=== PATIENT | female | born 1995 | race African-American/Black ===

== ENCOUNTER 2017-08-14 12:40 | Emergency (ER) | payer BC ==
[~2017-08-14] VITALS: Ht 154.9 cm; Wt 55.0 kg
[2017-08-14 12:41] VITALS: BP 133/77; PULSE 94; RESP 20; TEMP 99.7; O2SAT 99
--- NOTE | 2017-08-14 16:33 | PD ---
HPI Chief Complaint: Skin Problem Time Seen by Provider: 16:19 Travel History International Travel<30 days: No Contact w/Intl Traveler<30days: No Traveled to known affect area: No History of Present Illness HPI 22yo F with no PMH presents to the ED with c/o redness, swelling and pain in right breast for 3 days. Denies any trauma, fever, chest pain, sob, n/v, abdominal pain, focal weakness or numbness. Pt has no history of breast cancer or family history of breast cancer. Pt has a nipple ring for 1 year. Not breast feeding. PFSH Past Medical History ?: Not LMP: 07/2017 Social History Tobacco Use: No Allergies-Medications (Allergen,Severity, Reaction): Coded Allergies: No Known Allergies (Unverified , 08/14/17) Reported Meds & Prescriptions Reported Meds & Active Scripts Active Tylenol (Acetaminophen) 325 Mg Tab 650 Mg PO Q6H PRN Keflex (Cephalexin) 500 Mg Cap 500 Mg PO Q12H 7 Days Review of Systems Except as stated in HPI: all other systems reviewed are Neg Physical Exam Narrative GENERAL: 22yo F not in distress. SKIN: Focused skin assessment warm/dry. HEAD: Atraumatic. Normocephalic. EYES: Pupils equal and round. No scleral icterus. No injection or drainage. CARDIOVASCULAR: Regular rate and rhythm. No murmur appreciated. RESPIRATORY: No accessory muscle use. Clear to auscultation. Breath sounds equal bilaterally. GASTROINTESTINAL: Abdomen soft, non-tender, nondistended. BREAST: +Erythema and induration medial right breast. +Fluctuance areola 5 o' clock. MUSCULOSKELETAL: No obvious deformities. No clubbing. No cyanosis. No edema. NEUROLOGICAL: Awake and alert. No obvious cranial nerve deficits. Motor grossly within normal limits. Normal speech. PSYCHIATRIC: Appropriate mood and affect; insight and judgment normal. Data Data Last Documented VS Vital Signs Date Time Temp Pulse Resp B/P (MAP) Pulse Ox O2 Delivery O2 Flow Rate FiO2 08/14/17 17:26 08/14/17 12:41 99.7 94 20 99 Room Air Orders Orders Ed Poc Ultrasound (08/14/17 ) Lidocaine 1% Inj (50 Ml) (Xylocaine 1% I (08/14/17 16:45) Ed Discharge Order (08/14/17 17:18) MDM Medical Decision Making Medical Screen Exam Complete: Yes Emergency Medical Condition: Yes Differential Diagnosis Abscess vs. cellulitis Narrative Course 22yo F with right breast redness and swelling for 3 days. Positive fluctuance on exam. Bedside ultrasound confirmed collection of fluid in right breast. I& D performed and copious amounts of purulent discharge drained. Pt instructed to return in 2 days for packing removal and wound check. Procedures Procedure Narrative Emergency department soft-tissue/musculoskeletal ultrasound was performed with patient consent. Linear probe was used in the transverse and sagittal views in the area of interest with evidence of soft-tissue abscess. INCISION AND DRAINAGE OF ABSCESS: The area was prepped and was sterilely draped. A subcutaneous wheal of 1 % Xylocaine 3 mL was used to anesthetize the area properly. A number 11 scalpel was used to make a 0.5 -cm incision across the area of the abscess. The abscess was drained, complex loculations were broken down. Quarter inch iodoform packing was placed in the wound. Sterile dressing applied. Patient advised to have packing removed in two days. Diagnosis Primary Impression: Abscess Patient Instructions: General Instructions Departure Forms: Tests/Procedures Additional Instructions: Please return to the ED in 2 days for packing removal and wound check. Return to the ED earlier if symptoms worsen. Med/Other Pt SpecificInfo: Prescription(s) given Scripts Acetaminophen (Tylenol) 325 Mg Tab 650 MG PO Q6H Y for PAIN SCALE 1 TO 4, #20 TAB 0 Refills Prov: Almita Tejeda DO 08/14/17 Cephalexin (Keflex) 500 Mg Cap 500 MG PO Q12H for Infection for 7 Days, #14 CAP 0 Refills Prov: Almita Tejeda DO 08/14/17 Disposition: 01 DISCHARGE HOME Condition: Stable Almita Tejeda DO Aug 14, 2017 16:33
[2017-08-14] MEDS ORDERED: LIDOCAINE HCL 1% 50 ML VIAL INFIL ONE (16:45)
[2017-08-14] MEDS ORDERED: TYLE325T PO (17:18)
[2017-08-14] MEDS ORDERED: CEPH-460 PO (17:18)
== END 2017-08-14 17:27 | disposition home or self-care (01) ==
LOC: NEPD 12:40
DX: N61.1 Abscess of the breast and nipple (principal)
CPT/HCPCS: 10061

== ENCOUNTER 2017-08-16 22:17 | Emergency (ER) | payer BC ==
[~2017-08-16] VITALS: Ht 154.9 cm; Wt 58.0 kg
[~2017-08-16 22:17] MED LIST: CEPH-460 PO; TYLE325T PO
[2017-08-16 22:19] VITALS: BP 118/59; PULSE 78; RESP 16; TEMP 98; O2SAT 98
[2017-08-17] MEDS ORDERED: oxyCODONE/ACETAMINOPHEN 5 MG/325 MG TAB PO ONE (00:30)
[2017-08-17 00:44] VITALS: BP 158/90; PULSE 83; RESP 20; O2SAT 100
[2017-08-17 01:35] LABS: BASOPHIL # 0.1 TH/MM3 (0-0.2); BASOPHIL % 0.6 % (0.0-2.0); EOSINOPHIL # 0.2 TH/MM3 (0-0.4); EOSINOPHIL % 2.3 % (0.0-4.0); HEMATOCRIT 37.6 % (35.0-46.0); HEMO FLAGS DIFF FINAL; LYMPH % 20.5 % (9.0-44.0); LYMPHOCYTE # 2.1 TH/MM3 (1.0-4.8); MEAN CELL VOLUME 91.8 FL (80.0-100.0); MEAN CORPUSCULAR HEMOGLOBIN 30.6 PG (27.0-34.0); MEAN CORPUSCULAR HGB CONC 33.4 % (32.0-36.0); MONO % 8.5 % (0.0-8.0); NEUT % 68.1 % (16.0-70.0); PLATELET COUNT 245 TH/MM3 (150-450); RED BLOOD COUNT 4.09 MIL/MM3 (4.00-5.30); RED CELL DISTRIBUTION WIDTH 12.1 % (11.6-17.2); WHITE BLOOD COUNT 10.3 TH/MM3 (4.0-11.0)
[2017-08-17 01:42] LABS: BICARBONATE 26.1 MEQ/L (21.0-32.0); POTASSIUM 3.6 MEQ/L (3.5-5.1)
--- NOTE | 2017-08-17 02:05 | RADRPT ---
EXAM DATE/TIME: 08/17/2017 01:29 [facility] COMPARISON: No previous studies available for comparison. INDICATIONS : Right breast abscess. MEDICAL HISTORY : Right breast abscess. SURGICAL HISTORY : Right breast abscess lanced. ENCOUNTER: Initial ACUITY: 3 days PAIN SCORE: 10/10 LOCATION: Right breast. FINDINGS: Target sonogram of the right breast obtained. There is some skin thickening. They have decreased echo genicity measures 4.1 x 1.0 x 2.7 cm. CONCLUSION: Area of decreased echogenicity in the right breast could be minimal residual abscess. Yefri Dozier MD on August 17, 2017 at 2:02 Board Certified Radiologist. This report was verified electronically.
[2017-08-17] MEDS ORDERED: BACT800T5 PO (02:53)
--- NOTE | 2017-08-17 02:53 | PD ---
HPI Chief Complaint: Wound/Suture/Staple Re-Check Time Seen by Provider: 00:07 Travel History International Travel<30 days: No Contact w/Intl Traveler<30days: No Traveled to known affect area: No History of Present Illness HPI Patient is a 22 year old female who comes in complaining of drainage from her right breast. She was here 2 days ago and had her abscess drained. She was discharged with a prescription for Keflex, which she reports taking. She says it has continued to drain, so she returned to have it checked. She denies any fever. She says that she has a burning pain. She has never had this before. PFSH Past Medical History Medical History: Denies Significant Hx Diminished Hearing: No Tetanus Vaccination: Unknown Influenza Vaccination: No ?: Not Past Surgical History Surgical History: No Previous Surgery Social History Alcohol Use: No Tobacco Use: No Substance Use: No Allergies-Medications (Allergen,Severity, Reaction): Coded Allergies: No Known Allergies (Unverified , 08/16/17) Reported Meds & Prescriptions Reported Meds & Active Scripts Active Tylenol (Acetaminophen) 325 Mg Tab 650 Mg PO Q6H PRN Keflex (Cephalexin) 500 Mg Cap 500 Mg PO Q12H 7 Days Review of Systems Except as stated in HPI: all other systems reviewed are Neg General / Constitutional: No: Fever, Chills HENT: No: Headaches Cardiovascular: No: Chest Pain or Discomfort Respiratory: No: Shortness of Breath Gastrointestinal: No: Nausea, Vomiting Skin: Positive Lesions Neurologic: No: Weakness, Dizziness Physical Exam Narrative GENERAL: Awake and alert, in no acute distress. SKIN: Large amount of pus draining from just below the right nipple where I&D was performed. No large area of fluctuance. HEAD: Atraumatic. Normocephalic. EYES: Pupils equal and round. No scleral icterus. ENT: Mucous membranes pink and moist. NECK: Trachea midline. No JVD. CARDIOVASCULAR: Regular rate and rhythm. No murmur appreciated. RESPIRATORY: No accessory muscle use. Clear to auscultation. Breath sounds equal bilaterally. MUSCULOSKELETAL: No obvious deformities. No clubbing. No cyanosis. No edema. NEUROLOGICAL: Awake and alert. No obvious cranial nerve deficits. Motor grossly within normal limits. Normal speech. PSYCHIATRIC: Appropriate mood and affect; insight and judgment normal. Data Data Last Documented VS Vital Signs Date Time Temp Pulse Resp B/P (MAP) Pulse Ox O2 Delivery O2 Flow Rate FiO2 08/17/17 00:44 83 20 158/90 (112) 100 Room Air 08/16/17 22:19 98.0 Orders Orders Us Breast Unilateral (08/17/17 ) Iv Access Insert/Monitor (08/17/17 00:20) Complete Blood Count With Diff (08/17/17 00:20) Basic Metabolic Panel (Bmp) (08/17/17 00:20) Oxycodone-Acetamin 5-325 Mg (Percocet (08/17/17 00:30) Labs Laboratory Tests Test 08/17/17 01:15 White Blood Count 10.3 TH/MM3 Red Blood Count 4.09 MIL/MM3 Hemoglobin 12.5 GM/DL Hematocrit 37.6 % Mean Corpuscular Volume 91.8 FL Mean Corpuscular Hemoglobin 30.6 PG Mean Corpuscular Hemoglobin Concent 33.4 % Red Cell Distribution Width 12.1 % Platelet Count 245 TH/MM3 Mean Platelet Volume 9.2 FL Neutrophils (%) (Auto) 68.1 % Lymphocytes (%) (Auto) 20.5 % Monocytes (%) (Auto) 8.5 % Eosinophils (%) (Auto) 2.3 % Basophils (%) (Auto) 0.6 % Neutrophils # (Auto) 7.0 TH/MM3 Lymphocytes # (Auto) 2.1 TH/MM3 Monocytes # (Auto) 0.9 TH/MM3 Eosinophils # (Auto) 0.2 TH/MM3 Basophils # (Auto) 0.1 TH/MM3 CBC Comment DIFF FINAL Differential Comment Blood Urea Nitrogen 12 MG/DL Creatinine 0.74 MG/DL Random Glucose 76 MG/DL Calcium Level 9.0 MG/DL Sodium Level 140 MEQ/L Potassium Level 3.6 MEQ/L Chloride Level 107 MEQ/L Carbon Dioxide Level 26.1 MEQ/L Anion Gap 7 MEQ/L Estimat Glomerular Filtration Rate 121 ML/MIN [facility] Medical Decision Making Medical Screen Exam Complete: Yes Emergency Medical Condition: Yes Medical Record Reviewed: Yes Differential Diagnosis Abscess versus cellulitis versus mass Narrative Course Patient is a 22-year-old female comes in with continued drainage from her right breast. Exam shows a large amount of pus draining from the I&D site of her right breast. IV established, labs sent, labs show no acute abnormalities. Ultrasound shows minimal abscess. Abscess continues to drain. Patient advised to apply warm compresses. Given a prescription to Bactrim to take in addition to the Keflex. She is advised follow-up with general surgery. Advised follow-up with her primary care doctor. Advised to return to the ED as needed for any worsening symptoms. Diagnosis Primary Impression: Abscess Referrals: Vipin Parada MD call for appointment Patient Instructions: Abscess (ED), General Instructions Additional Instructions: Take all of your antibiotics. Follow up with general surgery as needed. Return to the ED as needed for any worsening symptoms. Scripts Sulfamethoxazole-Trimethoprim (Bactrim DS) 800-160 Mg Tab 1 TAB PO BID for Infection, #14 TAB 0 Refills Prov: Michelle Richardson MD 08/17/17 Disposition: 01 DISCHARGE HOME Condition: Stable Michelle Richardson MD Aug 17, 2017 02:53
== END 2017-08-17 03:40 | disposition home or self-care (01) ==
LOC: NEPC 22:17
DX: N61.1 Abscess of the breast and nipple (principal)
CPT/HCPCS: 76642; 80048; 85025; 99285